=== PATIENT | male | born 1980 | race American Indian/Alaskan Native ===

== ENCOUNTER 2018-03-18 17:40 | Emergency (ER) | payer OTHER, BC ==
[2018-03-18 17:41] VITALS: BMI 27.3
[2018-03-18] MEDS ORDERED: Sodium Chloride 0.9% 1,000 ML IV STA (18:13)
--- NOTE | 2018-03-18 18:55 | ED PDOC ---
HPI:Nausea, Vomiting, Diarrhea Time Seen by Provider: 03/18/18 18:03 Chief Complaint (Nursing): GI Problem Chief Complaint (Provider): nausea, diarrhea History Per: Patient History/Exam Limitations: no limitations Onset/Duration Of Symptoms: Days (one week) Context: Travel Severity: Moderate Quality Of Discomfort: Cramping Associated Symptoms: Fever, Nausea, Diarrhea, Loss Of Appetite. denies: Vomiting Exacerbating Factors: None Alleviating Factors: None Last Bowel Movement: Today Additional Complaint(s): 37yo male prior well traveled to [facility] last week, drank tap water on sunday, diarrhea started sunday, he returned to sunday and symptoms persisting. Went to [facility] [place] 2 days ago and started on cipro/flagyl, taking. Remains w nonbloody watery diarrhea, now feels nausea and weakness. ? fever last night. No rash, syncope, focal abdominal pain or cough. Past Medical History Reviewed: Historical Data, Nursing Documentation, Vital Signs Vital Signs: Last Vital Signs Temp 100.7 F H 03/18/18 18:00 Pulse 76 03/18/18 18:00 Resp 18 03/18/18 18:00 BP 146/92 H 03/18/18 18:00 Pulse Ox 99 03/18/18 18:00 - Medical History PMH: Denies: Depression - Surgical History Surgical History: No Surg Hx - Family History Family History: States: Unknown Family Hx - Living Arrangements Living Arrangements: With Family - Social History Current smoker - smoking cessation education provided: No - Home Medications Home Medications: Ambulatory Orders Medication Instructions Recorded Doxycycline Hyclate 100 mg PO BID #20 cap 10/25/14 - Allergies Allergies/Adverse Reactions: Allergies Allergy/AdvReac Type Severity Reaction Status Date / Time fruit Allergy RASH Uncoded 03/18/18 18:00 Review of Systems Constitutional: Positive for: Fever, Chills, Weakness Cardiovascular: Negative for: Chest Pain Respiratory: Negative for: Cough Gastrointestinal: Positive for: Nausea, Abdominal Pain, Diarrhea. Negative for : Vomiting, Constipation, Melena, Hematochezia, Hematemesis Genitourinary Male: Negative for: Dysuria, Hematuria Musculoskeletal: Negative for: Neck Pain, Back Pain Skin: Negative for: Rash, Lesions Neurological: Negative for: Weakness, Numbness, Headache Psych: Negative for: Depression Physical Exam - Reviewed Nursing Documentation Reviewed: Yes Vital Signs Reviewed: Yes - Physical Exam Appears: Positive for: Well, Non-toxic, No Acute Distress Head Exam: Positive for: ATRAUMATIC, NORMAL INSPECTION, NORMOCEPHALIC Skin: Positive for: Normal Color, Warm, DRY Eye Exam: Positive for: Normal appearance, EOMI, PERRL. Negative for: Scleral icterus ENT: Positive for: Normal ENT Inspection Neck: Positive for: Normal, Painless ROM Cardiovascular/Chest: Positive for: Regular Rate, Rhythm Respiratory: Positive for: CNT, Normal Breath Sounds Gastrointestinal/Abdominal: Positive for: Soft. Negative for: Tenderness, Guarding Back: Positive for: Normal Inspection Extremity: Positive for: Normal ROM Neurologic/Psych: Positive for: Alert, Oriented - ECG O2 Sat by Pulse Oximetry: 99 Medical Decision Making Medical Decision Making: workup for travelers diarrhea initiated check bloodwork, initiate IVF bolus stool O/P and culture sent at [place] per patient, his PMD checked this am and not back yet. Disposition - Clinical Impression Clinical Impression: Travelers' diarrhea - Patient ED Disposition Is Patient to be Admitted: Transfer of Care - Disposition Disposition: Transfer of Care Disposition Time: 18:56 Patient Signed Over To: Dawson Olsen Handoff Comments: pending labs and re-eval
[2018-03-18 19:02] LABS: ALB/GLOB RATIO 1.2 (1.0-2.1); ALBUMIN 4.4 g/dL (3.5-5.0); CALCIUM 9.3 mg/dL (8.4-10.2); GFR AFRICAN-AMERICAN > 60; GFR NON-AFRICAN AMERICAN > 60; LIPASE 35 U/L (23-300)
[2018-03-18 19:06] LABS: ALT/SGPT 48 U/L (21-72); AST/SGOT 39 U/L (17-59); BASO % 0.4 % (0.0-2.0); BLOOD UREA NITROGEN 14 mg/dl (9-20); EOS # 0.6 K/uL (0.0-0.7); EOS % 13.2 % (0.0-4.0); HEMOGLOBIN 15.4 g/dL (12.0-18.0); MEAN CELL VOLUME 95.1 fl (80.0-94.0); MEAN CORPUSCULAR HEMOGLOBIN 32.3 pg (27.0-31.0); MEAN PLATELET VOLUME 7.8 fl (7.2-11.7); MONO # 0.6 K/uL (0.0-0.8); MONO % 14.1 % (0.0-10.0); NEUT # 2.4 K/uL (1.8-7.0); NEUT % 51.3 % (50.0-75.0); NRBC % 0.1 % (0.0-0.0); RBC 4.76 Mil/uL (4.40-5.90); RED CELL DISTRIBUTION WIDTH 13.7 % (11.5-14.5); WHITE BLOOD COUNT 4.6 K/uL (4.8-10.8)
--- NOTE | 2018-03-18 19:41 | ED PDOC ---
- Laboratory Results Result Diagrams: 03/18/18 18:49 03/18/18 18:49 - ECG O2 Sat by Pulse Oximetry: 99 (RA) Pulse Ox Interpretation: Normal Medical Decision Making Medical Decision Making: Time: 1899 Patient signed out to me by Dr. Snyder pending labs and reevaluation. 1999 Patient is feeling much better, vitals improved, advised patient to followup with PMD in [place] to obtain results of stool studies to guide further treatment. Advised to continue taking ABx. Patient very well appearing, ambulatory upon discharge. Scribe Attestation: Documented by Carlin Bruno, acting as a scribe for Dawson Olsen MD Provider Scribe Attestation: All medical record entries made by the Scribe were at my direction and personally dictated by me. I have reviewed the chart and agree that the record accurately reflects my personal performance of the history, physical exam, medical decision making, and the department course for this patient. I have also personally directed, reviewed, and agree with the discharge instructions and disposition. Disposition - Clinical Impression Clinical Impression: Travelers' diarrhea - POA Present On Arrival: None - Disposition Disposition: Routine/Home Disposition Time: 20:27 Condition: IMPROVED Instructions: Traveler's Diarrhea Forms: [employer] (Macanese)
[2018-03-18 20:33] VITALS: BP 129/91; PULSE 68; RESP 17; TEMP 98.6
[2018-03-18 20:37] VITALS: O2SAT 99
== END 2018-03-18 20:42 | disposition home or self-care (01) ==
LOC: H.ER 17:40
DX: R19.7 Diarrhea, unspecified (principal); R50.9 Fever, unspecified
CPT/HCPCS: 80053; 83690; 85025; 96360; 99283; J7040